=== PATIENT | female | born 1935 | race Caucasian/White ===

== ENCOUNTER 2017-02-06 07:36 | Day surgery (SDC) | payer MEDICARE, OTHER ==
[~2017-02-06] VITALS: Ht 165.1 cm; Wt 88.0 kg
[~2017-02-06 07:36] MED LIST: ATENOLOL50 MG PO; LIPITOR20 MG PO; LOSARTAN POTASS50 MG PO; VITAMIN D32000 UNI1 PO
--- NOTE | 2017-02-06 09:37 | NUR ---
02/06/17 0937 Royce Thomas PATIENT SITTING UP AND SIPPING WATER. O2 TITRATED TO ROOM AIR.
--- NOTE | 2017-02-07 06:49 | OR ---
[facility] [address], [place] [address] Signed DATE OF PROCEDURE: 02/06/17 PREOPERATIVE DIAGNOSES Internal hemorrhoids. Mother with a history of colon cancer in her mid 80s. Maternal uncle with history of colon cancer in her 60s. Maternal grandmother with a history of colon cancer. POSTOPERATIVE DIAGNOSES Minimal to moderate internal and external hemorrhoids. PROCEDURE: Colonoscopy without biopsy. ESTIMATED BLOOD LOSS: None. INDICATIONS Yasmine is an 81-year-old female, who underwent an initial colonoscopy in [address] Gilbert. This was unremarkable. A follow-up colonoscopy in 2006 with myself showed a little bit internal hemorrhoids. However, she has a strong family history of colon cancer with maternal grandmother having colon cancer, maternal uncle having colon cancer in his 60s, and mother having colon cancer in her mid 80s. Yasmine is quite convinced her mom would have lived to 100 had she not of colon cancer in her mid 80s. Yasmine now returns in her 10 year follow-up for a colonoscopy. For some reason, she did not make it at year 5. She told me she has a little intermittent diarrhea, but Metamucil and Imodium correct that quite nicely. In the office, I gave her a pamphlet on colonoscopy. We reviewed the nature of the test along with the risks including, but not limited to, gas bloating, crampy abdominal pain, bleeding perforation requiring surgery, and missed diagnosis. We also discussed the need for IV conscious sedation. She had expressed understanding and wished to proceed. PROCEDURE NOTE Yasmine was taken into our endoscopy suite and placed in the left lateral decubitus position. She was given divided doses of 6 mg of Versed and 125 mcg of Fentanyl. A digital rectal exam was performed and she has minimal to moderate circumferential external hemorrhoids. The adult colonoscope was then introduced and advanced under direct visualization of the camera up to the cecum. We did use some additional sedation and we advanced the scope. Her prep was quite good. The scope was then slowly withdrawn. We saw no pathology throughout her entire colon or rectum. Specifically, no polyps and no diverticulosis. Upon retroflexion of scope, she had some minimal internal hemorrhoids. After this, the gas was suctioned out and the colonoscope removed. Yasmine tolerated the procedure quite well. Electronically Signed By: ELIEL LEIGH MD 02/07/17 0649 PATIENT NAME: YASMINE MORALES OPERATIVE REPORT DATE OF : 31 PHYSICIAN: ELIEL LEIGH MD REPORT #: [id number] REPORT IS CONFIDENTIAL AND NOT TO BE RELEASED WITHOUT AUTHORIZATION [facility] [address] [place] [id number] Signed RECOMMENDATIONS Yasmine is welcome to follow up in 5 years for repeat colonoscopy so long as her health holds up. Otherwise, she can follow up as needed. MD AARON Strauss/Cyndi /[id number] cc: MD Raciel Sarkar MD Electronically Signed By: ELIEL LEIGH MD 02/07/17 0649 PATIENT NAME: MARKDANTEYASMINE OPERATIVE REPORT DATE OF : 31 PHYSICIAN: ELIEL LEIGH MD REPORT #: [id number] REPORT IS CONFIDENTIAL AND NOT TO BE RELEASED WITHOUT AUTHORIZATION
== END 2017-02-06 09:58 | disposition home or self-care (01) ==
LOC: DS 07:36 → OPS 07:36 → DS 09:00 → OPS 09:58
PROVIDERS: Colon & Rectal Surgery
PROC: 0DJD8ZZ Inspection of Lower Intestinal Tract, Via Natural or Artificial Opening Endoscopic (ICD-10-PCS; principal; 2017-02-06 09:00)
DX: K64.8 Other hemorrhoids (principal); K64.4 Residual hemorrhoidal skin tags; I10 Essential (primary) hypertension; E78.5 Hyperlipidemia, unspecified; E05.90 Thyrotoxicosis, unspecified without thyrotoxic crisis or storm; M19.90 Unspecified osteoarthritis, unspecified site; Z80.0 Family history of malignant neoplasm of digestive organs; Z98.890 Other specified postprocedural states; Z79.899 Other long term (current) drug therapy
CPT/HCPCS: 99152; 99153; J2250; J3010; J7120

== ENCOUNTER 2022-07-26 06:50 | Day surgery (SDC) | payer MEDICARE, OTHER ==
[~2022-07-26] VITALS: Ht 165.1 cm; Wt 81.8 kg
[~2022-07-26 06:50] MED LIST changes: +HYDROCHLOROTH12.5 M1 PO; +METOPROLOL SUCC50 MG PO; +VITAMIN D3125 MC1 PO
[2022-07-26] MEDS ORDERED: TYLENOL EXTRA500 MG PO (07:04)
--- NOTE | 2022-07-26 08:49 | NUR ---
RENETTA MUSE REQUESTED I NOT DISTURB PT AT THIS TIME. WILL FOLLOW NEEDED
--- NOTE | 2022-07-26 12:54 | NUR ---
07/26/22 1254 Blanca Alvarez 1152 PT ARRIVED IN PACU WIDE AWAKE TALKING TO STAFF. 1210 DR AT BEDSIDE. ALL QUESTIONS ANSWERED. 1220 DC INSTRUCTIONS GIVEN. LEFT VIA W/C.
--- NOTE | 2022-07-27 08:30 | OR ---
[facility] [address] [place], [place] [address] Signed DATE OF OPERATION: 07/26/2022 SURGEON: Marcia Frost MD PREOPERATIVE DIAGNOSIS: Endometrial thickening and fluid. POSTOPERATIVE DIAGNOSIS: Endometrial thickening and fluid with endometrial polyps. ANESTHESIA: MAC. PROCEDURES: 1. Hysteroscopy. 2. Resection of polyps. ESTIMATED BLOOD LOSS: Minimal. DRAINS: None. INDICATIONS AND FINDINGS: The patient is an 87-year-old female, who in the course of her evaluation for her ongoing back issues and preparation for surgery was found to have a small left ovarian cyst. Ultrasound was done, which showed this was completely benign, but the endometrial lining was noted to be thickened with some fluid. Because of this, it was recommended she undergo evaluation of the cavity. She has not had any bleeding. At the time of surgery, exam under anesthesia was normal. The endometrial cavity sounded to 8 cm. There were multiple small polyps on the lower posterior fundus. DESCRIPTION OF PROCEDURE: The patient was prepped and draped in the dorsal lithotomy position. A weighted speculum was placed. The anterior lip of the cervix was visualized and grasped with a single-tooth tenaculum. The cavity was then sounded to 8 cm. The endocervical canal was then dilated to a #8 dilator. The MyoSure device was then placed and the polyps identified. The MyoSure Lite was then introduced and the polyps were removed without difficulty. The remaining cavity appeared atrophic. The procedure was terminated. The instruments were removed from the vagina and there was no evidence of any ongoing Electronically Signed By: MARCIA FROST MD 07/27/22 0830 PATIENT NAME: YASMINE MORALES OPERATIVE REPORT DATE OF : 31 REPORT #: [id number] PHYSICIAN: MARCIA FROST MD PCP: VANESSA LOGAN MD REPORT IS CONFIDENTIAL AND NOT TO BE RELEASED WITHOUT AUTHORIZATION [facility] [address] [place] [id number] Signed bleeding from the tenaculum site. All sponge and needle counts were correct. She was taken to the recovery room in good condition. Marcia Frost MD PJW/MODL /[id number] Copies: ~ Electronically Signed By: MARCIA FROST MD 07/27/22 0830 PATIENT NAME: YASMINE MORALES OPERATIVE REPORT DATE OF : 31 REPORT #: [id number] PHYSICIAN: MARCIA FROST MD PCP: VANESSA LOGAN MD REPORT IS CONFIDENTIAL AND NOT TO BE RELEASED WITHOUT AUTHORIZATION
--- NOTE | 2022-07-28 12:30 | PATH ---
[facility] [address] [facility] [place], [place] [address] Signed SPECIMEN(S): A ENDOMETRIAL CURETTINGS AND POLYP SPECIMEN SOURCE: A. ENDOMETRIAL CURETTINGS AND POLYP CLINICAL HISTORY: Endometrial thickening. FINAL PATHOLOGIC DIAGNOSIS: Endometrial curettings and polyp, curettage and polypectomy: - Fragments of endometrial polyp with benign inactive endometrial glands. - Negative for hyperplasia and atypia. DF:llc:C2NR MICROSCOPIC EXAMINATION: Histologic sections of all submitted blocks are examined by light microscopy. These findings, together with the gross examination, support the pathologic diagnosis. GROSS DESCRIPTION: The specimen, labeled and designated "Wyss, F, EMC and polyp," is received in formalin and consists of 3.0 x 2.0 x 0.4 cm aggregate of pink soft tissue. Also present within the container is one pink polypoid tissue fragment that is 2.6 cm in greatest dimension. The specimen is entirely submitted in (A1-A2). FB (under the direct supervision of a pathologist) The Gross Description was prepared using a voice recognition system. The report was reviewed for accuracy; however, sound-alike word errors, addition and/or deletions may occur. If there is any question about this report, please contact Client Services. PERFORMING LABORATORY: The technical component was performed by [facility], [address] [place] [address] (CLIA# [id number]). Professional interpretation was performed by [facility], [facility], [address] [place] [id number] (CLIA#: [id number]) Diagnostician: Lalo Kebede DO Pathologist Electronically Signed 07/28/2022 PATIENT NAME: YASMINE MORALES PATHOLOGY DATE OF : 31 REPORT #: [id number] PHYSICIAN: [facility] PCP: VANESSA LOGAN MD REPORT IS CONFIDENTIAL AND NOT TO BE RELEASED WITHOUT AUTHORIZATION [address] [address] Signed Copies: ~ PATIENT NAME: YASMINE MORALES PATHOLOGY DATE OF : 31 REPORT #: [id number] PHYSICIAN: [facility] PCP: VANESSA LOGAN MD REPORT IS CONFIDENTIAL AND NOT TO BE RELEASED WITHOUT AUTHORIZATION
== END 2022-07-26 12:20 | disposition home or self-care (01) ==
LOC: DS 06:50
PROVIDERS: ATTEND Obstetrics & Gynecology
PROC: 0UB98ZZ Excision of Uterus, Via Natural or Artificial Opening Endoscopic (ICD-10-PCS; principal; 2022-07-26 09:30)
DX: R93.89 Abnormal findings on diagnostic imaging of other specified body structures (principal); N84.0 Polyp of corpus uteri; I10 Essential (primary) hypertension; E78.5 Hyperlipidemia, unspecified; Z79.899 Other long term (current) drug therapy
CPT/HCPCS: 00952; J0131; J0690; J2001; J2704; J7121